=== PATIENT | male | born 1980 | race Caucasian/White ===

== ENCOUNTER → 2022-10-09 | Outpatient (CLI) | payer BC ==
--- NOTE | 2022-10-09 11:03 | CT ---
EXAMINATION TYPE: CT abdomen pelvis wo con DATE OF EXAM: 10/09/2022 COMPARISON: None HISTORY: 41-year-old male with pain, K4 0.90, Possible RT side inguinal hernia. Oral contrast only. CT DLP: 657.20 mGycm. Automated exposure control for dose reduction was used. TECHNIQUE: Contiguous axial scanning of the abdomen and pelvis without IV contrast. Coronal and sagit vish reconstructions performed. FINDINGS: Heart normal size without pericardial effusion. Lung bases clear without pleural effusion. Noncontrast appearance of the liver, gallbladder, adrenal glands, kidneys, spleen, and pancreas withi n normal limits. No dilated small bowel, free fluid, or free air. No mesenteric or retroperitoneal lymphadenopathy. Mild atherosclerotic calcifications infrarenal abdominal aorta. Tiny 1.3 cm wide fatty umbilical hernia. Normal appendix. Oral contrast progressed to the rectum. Scattered stool is present. No pericolonic i nflammatory change. Mild circumferential bladder wall thickening. Prostate gland normal size. No abnormal fluid collectio n in the pelvis or pelvic lymphadenopathy. There is a 2.2 cm mixed density, partially calcified nodul e anterior left side of the pelvis which is nonspecific, possibly sequela of old inflammation such as epiploic appendagitis. No inguinal or femoral canal hernia seen. Bones: There are bilateral L5 pars defects with a grade 2 anterolisthesis at L5-S1 and mild degenerat al disc disease. IMPRESSION: 1. No femoral canal or inguinal hernia seen. There is a tiny 1.3 cm fatty umbilical hernia. 2. Mild circumferential bladder wall thickening may be chronic for the patient. Correlate to exclude cystitis. 3. Bilateral L5 pars defects with a grade 2 anterolisthesis at L5-S1 and associated mild degenerativ e disc disease.
== END | disposition home or self-care (01) ==
LOC: RADCTMAIN 07:26
PROVIDERS: ATTEND Family Medicine
DX: K40.90 Unilateral inguinal hernia, without obstruction or gangrene, not specified as recurrent (principal); K42.9 Umbilical hernia without obstruction or gangrene; M43.17 Spondylolisthesis, lumbosacral region; M51.36 Other intervertebral disc degeneration, lumbar region
CPT/HCPCS: 74176